=== PATIENT | female | born 1975 | race Two or more races ===

== ENCOUNTER 2024-08-29 11:27 | Emergency (ER) | payer MEDICAID, SELFPAY ==
[2024-08-29 11:27] VITALS: BMI 27.3
[2024-08-29 11:40] VITALS: BP 118/80; PULSE 76; RESP 18; TEMP 37.2; O2SAT 98
--- NOTE | 2024-08-29 11:42 | XR_ITS ---
Examination: Hand, left 3 views Technique: Hand AP, oblique, lateral 3 views Date and time of exam: August 29, 2024 1151 hours INDICATIONS: Patient fell today with injury to the wrist and hand, wrist pain hand pain. FINDINGS: Acute severely comminuted intra-articular fracture distal radial metaphysis, mild volar angulation at the fracture site Fracture ulnar styloid tip Metacarpals digits appear intact IMPRESSION: Acute severely comminuted intra-articular fracture distal radial metaphysis
--- NOTE | 2024-08-29 11:42 | XR_ITS ---
Examination: Wrist, left 3 views Technique: Wrist AP, oblique, lateral 3 views Date and time of exam: August 29, 2024 1151 hours INDICATIONS: Patient fell today with injury to the wrist, wrist pain. FINDINGS: Acute severely comminuted intra-articular fracture distal radial metaphysis, mild volar angulation at the fracture site Fracture ulnar styloid tip IMPRESSION: Acute severely comminuted intra-articular fractures distal radial metaphysis
--- NOTE | 2024-08-29 11:42 | PD.EDRME ---
Rapid Medical Screening Exam E Arrival date/time: 08/29/24 11:27 49-year-old female presents to the Emergency Department today with left wrist pain and left hand pain with swelling Chief Complaint: Hand/Wrist Problems Vital signs: Vital Signs Temperature 98.9 F 08/29/24 11:40 Pulse Rate 76 08/29/24 11:40 Respiratory Rate 18 08/29/24 11:40 Blood Pressure 118/80 08/29/24 11:40 Pulse Oximetry (%) 98 08/29/24 11:40 Oxygen Delivery Method Room Air 08/29/24 11:40
[2024-08-29] MEDS: HYDROcodone/APAP 5/325 TABLET 1 TAB PO (12:26)
--- NOTE | 2024-08-29 12:51 | PD.EDADULT ---
ED General RME/HPI General Chief complaint: Hand/Wrist Problems Stated complaint: LEFT WRIST INJURY +DEFORMITY Time Seen by Provider: 08/29/24 12:23 Arrival date/time: 08/29/24 11:27 CC: Left wrist pain HPI status post fall patient slipped on loose gravel falling directly on her wrist denies LOC or LOC does not take any blood thinners. Patient is awake alert oriented nontoxic. Nonacute distress pain is an 8-9 out of 10 scale. The patient denies any numbness or tingling in the left wrist. RME / HPI RME / HPI narrative: 08/29/24 11:27 49-year-old female presents to the Emergency Department today with left wrist pain and left hand pain with swelling Related Data Previous Rx's ?Medication ?Instructions ?Recorded ibuprofen 600 mg tablet 600 mg PO Q6H PRN pain #20 tabs 06/22/19 meloxicam 7.5 mg tablet 7.5 mg PO QDAY PRN pain (scale 08/29/24 score 4-6) #10 tabs Allergies Allergy/AdvReac Type Severity Reaction Status Date / Time No Known Allergies Allergy Verified 08/29/24 11:30 Review of Systems Review of Systems Narrative Review of Systems: GEN: No fever, no chills, no weight loss EYES: No discharge, no visual changes, no pain HEENT: No ear pain, no congestion, no sore throat PULM: No shortness of breath, no cough, no congestion CV: No chest pain, no dyspnea on exertion, no palpitations GI: No nausea, no vomiting, no diarrhea, no pain, no constipation : No frequency, no urgency, no dysuria MUSC/SKEL: + joint pain, no back pain SKIN: No rash PSYCH: No hallucinations, no depression HEME/LYMPH: No easy bleeding or bruising tendencies NEURO: No weakness, no headache Past Medical History Past Medical History NEUROLOGIC: Negative Neurological Disorders, Cerebrovascular Accident, Seizures, Migraine or Head Trauma CARDIAC: Positive Hypercholesterolemia; Negative Cardiac Disorders, Congestive Heart Failure, Edema or Varicose Veins RESPIRATORY: Negative Chronic Obstructive Pulmonary Disease (COPD) or Pneumonia GASTROINTESTINAL: Positive Gastrointestinal Disorders (gastritis); Negative Hepatitis GENITOURINARY: Negative Genitourinary Disorders, Renal Disease or Kidney Stones REPRODUCTIVE: Positive Previous Pregnancies (x3) MUSCULOSKELETAL: Negative Musculoskeletal Disorders ENT: Negative Cataracts, Glaucoma or Head Trauma ENDOCRINE: Negative Endocrine Disorders, Diabetes Mellitus Type 1 or Diabetes Mellitus Type 2 HEMATOLOGIC: Negative Blood Disorders, Anemia or Leukemia PSYCHO/SOCIAL: Negative Depression or Anxiety OTHER HISTORY: Negative Hospitalization, Shingles, Falls, Blood Transfusions, Anesthesia Reactions, Organ Transplant, Chemotherapy, Radiation Therapy, MRSA, Chicken Pox, Measles, Mumps or Cancer Family History FAMILY HISTORY: Positive Family Gastrointestinal Problems, Family Cancer (sister (uterine)) and Family Surgery (mother and sister); Negative Family Psychiatric Problems, Family Respiratory Disorders, Family Cardiac Disorders or Family Anesthesia Reaction Surgical History SURGICAL: Negative Cardiac Surgery, Endocrine Surgery, Thyroidectomy, Ear Surgery, Eye Surgery, Nose Surgery, Oral Surgery, Abdominal Surgery, Nephrectomy, Joint Replacement, Neurologic Surgery, Mastectomy, Tubal Ligation, Section or Organ Transplant Social History SMOKING STATUS: Never smoker ED Exam Narrative Physical exam: [General: In moderate discomfort not in any acute distress Head normocephalic HEENT: Eyes pupils are PERRLA EOMs are intact mouth pink moist membranes uvula is midline no step-off or hematoma no facial asymmetry ecchymosis retains eyes or do signs. All the subsystems of HEENT are within acceptable limits Neck is supple nontender full range of motion flexion extension and rotation of the neck. Chest equal chest rise nontender to palpation Respiratory: Clear to auscultation no wheezes crackles or rubs CV: Rate rhythm is regular no murmurs rubs or clicks Abdomen is soft nontender no masses positive bowel sounds all 4 quadrants Back: No CVA tenderness no spinous process tenderness from cervical spine thoracic and lumbar spine Skin: Intact no petechiae rash induration ulceration or crepitus Extremities: Left upper extremity, decreased range of motion of the wrist with mild edema cap refill in the digits less than 2 seconds neurosensory intact. Obvious deformity. Moving all other extremities against resistance cap refill less than 2 seconds neurosensory intact Neuro: Awake alert oriented x3 Glascow coma 15 no focal deficits] Course Quality Measures none Orders Category Date Time Status Splint / Immobilizer STAT Care 08/29/24 12:26 Active XR hand comp LT min 3V Stat Exams 08/29/24 11:42 Taken XR wrist comp LT min 3V Stat Exams 08/29/24 11:42 Taken HYDROcodone*/APAP 5/325 [[place] 5/325] Med 08/29/24 11:42 Discontinued 1 tab PO X1 ONE Vital Signs Vital signs: Vital Signs Temperature 98.9 F 08/29/24 11:40 Pulse Rate 76 08/29/24 11:40 Respiratory Rate 18 08/29/24 11:40 Blood Pressure 118/80 08/29/24 11:40 Pulse Oximetry (%) 98 08/29/24 11:40 Oxygen Delivery Method Room Air 08/29/24 11:40 Discharge Plan Plan Patient Disposition: HOME (Self Care) Patient condition on transfer: Stable Prescriptions/Referrals Prescriptions/Med Rec: New meloxicam 7.5 mg tablet 7.5 mg PO QDAY PRN (Reason: pain (scale score 4-6)) Qty: 10 0RF No Action ibuprofen 600 mg tablet 600 mg PO Q6H MDD 6 PRN (Reason: pain) Qty: 20 0RF Referrals: No Primary/Family,Physician [Primary Care Provider] - In 1 week Chico Friedman MD [Physician] - In 1 week Problem List Clinical Impression: Fracture of wrist Patient/Caregiver Discharge Instructions Other Activity Instructions:: Keep the wrist in the splint at all times do not get the splint wet or take it off if you return immediately to the emergency room for reevaluation. Follow-up with the bone doctor listed above if there is worsening of symptoms return the emergency room for reevaluation. Education Materials: ED Fracture, Wrist, General Print Language: Greenlandic Stand Alone Forms: [facility] Award Info., Patient Portal Info Letter, Work/School Release PA/OFFICE EXECUTIVE Supervising Physician PA/OFFICE EXECUTIVE Supervising Physician: Madhu Ramirez ENP MDM Patient Acuity Low Acuity (complete MDM as needed) Clinical Information Provided by: patient Medical Records reviewed [facility] Meds/Rx considered, not ordered None Labs/Rad/Tests considered, not ordered None Imaging Imaging Interpretation(s): Hand shows no hand fractures however there is a nondisplaced impacted distal radius and ulnar fracture Medication Administration(s) Medication Administration History Discontinued Medications Hydrocodone Bitart/Acetaminophen (Hydrocodone/Apap 5/325 Tablet) 1 tab PO X1 ONE Stop: 08/29/24 11:43 Last Admin: 08/29/24 12:26 Dose: 1 tab Documented By: MELVI Diagnosis Differential Diagnosis ED Complaint MDM: Hand fracture wrist fracture midshaft radius ulna fracture
[2024-08-29 13:00] VITALS: BP 122/84; PULSE 74; RESP 18; TEMP 37; O2SAT 98
[2024-08-29] MEDS: oxyCODONE/APAP 5/325 TABLET 1 TAB PO (13:52)
== END 2024-08-29 13:53 | disposition home or self-care (01) ==
PROVIDERS: Emergency Provider Emergency Medicine
DX: S52.572A Other intraarticular fracture of lower end of left radius, initial encounter for closed fracture (principal); W01.0XXA Fall on same level from slipping, tripping and stumbling without subsequent striking against object, initial encounter
CPT/HCPCS: 29126; 73110; 73130; 99283; A4565; A9270